=== PATIENT | male | born 1975 | race African-American/Black ===

== ENCOUNTER 2025-06-03 10:36 | Emergency (ER) | payer OTHER, SELFPAY ==
[2025-06-03] VITALS (24 sets, daily range): BP systolic 105–132; BP diastolic 72–100; PULSE 73–96; TEMP 36.6; O2SAT 93–100; BMI 36.6
--- NOTE | 2025-06-03 10:55 | XR_ITS ---
The [address] [address] Patient Name: MARCIA SOSA MRN: [id number] date: 1975 Sex: M Assigned Patient Location: ER Current Patient Location: ED.MAIN Accession/Order Number: [id number] Exam Date: 06/03/2025 11:30 Report Date: 06/03/2025 12:23 At the request of: DEISI ANAYA MD Procedure: XR chest 1V XR chest 1V 06/03/2025 11:34 AM SIGNS AND SYMPTOMS: Left-sided chest pain, shortness breath, cough PROTOCOL: Frontal radiograph of the chest COMPARISON: None FINDINGS: The trachea is midline. The heart and mediastinal structures are within normal limits. Interstitial prominence is noted with mild perihilar airspace opacity possibly representing sequelae of pneumonia. This is greater on the left. The bony thorax is intact. XR/XR chest 1V IMPRESSION: Interstitial prominence is noted with mild perihilar airspace opacity possibly representing sequelae of pneumonia. This is greater on the left. Impression dictated by: Lalito Feliciano M.D. 06/03/2025 12:23 PM Dictation Location: [place] [address] Electronically authenticated by: [id number] Y Date: 06/03/2025 12:23
--- NOTE | 2025-06-03 10:55 | ECG_ITS ---
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 Measurements Intervals [place] Rate: 81 P: 63 CA: 152 QRS: 35 QRSD: 72 T: 47 QT: 352 QTc: 389 Interpretive Statements [address] [facility] abnormality Abnormal ECG No previous ECG available for comparison Electronically Signed On 06-03-2025 11:08:17 EDT by RG BLAKC M.D.
--- NOTE | 2025-06-03 10:57 | ED_ITS ---
HPI HPI - General Adult General Chief complaint: Shortness of Breath/Dyspnea Stated complaint: SHORTNESS OF BREATH, LUMP/BUMP ON HEAD Time Seen by Provider: 06/03/25 10:37 Source: patient Mode of arrival: walk-in Limitations: no limitations History of Present Illness HPI narrative: 49-year-old male presents for chest pain and shortness of breath. Has been having some shortness of breath over the past 2 weeks and now he has some pain in his chest intermittently. It is in the middle part of his chest and does not seem to radiate. He has been coughing up a small amount of white to yellow- colored phlegm. Related Data Allergies Allergy/AdvReac Type Severity Reaction Status Date / Time ibuprofen (From Motrin) AdvReac Mild Nausea Verified 06/03/25 10:45 Review of Systems ROS Narrative A ten point review of systems is negative except as noted above. PFSH PFSH Social History Little interest or pleasure in doing things: not at all Feeling down, depressed, or hopeless: not at all Exam Narrative Exam Narrative: Nurses note and vital signs reviewed General:The patient appears well and in no apparent distress.Patient is resting comfortably on cart. Skin:Warm, dry, no pallor noted.There is no rash noted. Head:Normocephalic, atraumatic Eye: Normal conjunctiva, no drainage Ears, Nose, Mouth, and Throat: oral mucosa is moist. Nares patent. Cardiovascular:Regular Rate and Rhythm Respiratory:Patient is in no distress, no accessory muscle use, lungs are clear to auscultation, no wheezing, rales or rhonchi Back:non-tender GI: Soft and nontender Musculoskeletal: The patient has no evidence of calf tenderness, no pitting edema, symmetrical pulses noted bilaterally Neurological:A&O, normal speech Psychiatric:Cooperative Constitutional Vital Signs, click to edit/add: Last Vital Signs Temp 97.8 F 06/03/25 10:41 Pulse 83 06/03/25 11:10 Resp 20 06/03/25 11:10 BP 129/79 06/03/25 11:01 Pulse Ox 97 06/03/25 12:00 O2 Del Method Room Air 06/03/25 12:00 Course Vital Signs Vital signs: Vital Signs Temperature 97.8 F 06/03/25 10:41 Pulse Rate 77 06/03/25 10:41 Respiratory Rate 18 06/03/25 10:41 Blood Pressure 132/100 H 06/03/25 10:41 Pulse Oximetry 99 06/03/25 10:41 Oxygen Delivery Method Room Air 06/03/25 10:41 Temperature 97.8 F 06/03/25 10:41 Pulse Rate 83 06/03/25 11:10 Respiratory Rate 20 06/03/25 11:10 Blood Pressure 129/79 06/03/25 11:01 Pulse Oximetry 97 06/03/25 12:00 Oxygen Delivery Method Room Air 06/03/25 12:00 Medical Decision Making MDM Narrative Medical decision making narrative: Patient's x-ray is consistent with sequelae of pneumonia. He felt improved with the aerosol treatments and is being discharged home on Zithromax, albuterol, and Tessalon. 2 sets of troponin are negative. I do not suspect pulmonary embolism. Treatment diagnosis and follow-up were discussed with the patient. Differential Diagnosis Differential Diagnosis: PA, pneumonia, bronchitis, influenza, COVID Lab Data Lab results reviewed: Yes I reviewed the patient's lab results Labs: Lab Results 06/03/25 06/03/25 06/03/25 Range/Units 10:55 10:57 11:52 WBC 7.8 (4.0-11.0) 10^3/uL RBC 5.82 (4.70-6.10) 10^6/uL Hgb 16.2 (14.0-18.0) g/dL Hct 49.4 (42.0-54.0) % MCV 84.9 (80.0-94.0) fL MCH 27.8 (25.9-34.0) pg MCHC 32.8 (29.9-35.2) g/dL RDW 13.4 (11.0-15.0) % Plt Count 185 (150-450) 10^3/uL MPV 9.5 (9.5-13.5) fL Neut % (Auto) 50.5 (43.0-75.0) % Lymph % (Auto) 40.0 (20.5-60.0) % Pierce % (Auto) 4.6 (1.7-12.0) % Eos % (Auto) 3.7 (0.9-7.0) % Baso % (Auto) 0.9 (0.2-2.0) % Neut # (Auto) 4.0 (1.4-6.5) 10^3/uL Lymph # (Auto) 3.1 (1.2-3.8) 10^3/uL Pierce # (Auto) 0.4 (0.3-0.8) 10^3/uL Eos # (Auto) 0.3 (0.0-0.7) 10^3/uL Baso # (Auto) 0.1 (0.0-0.1) 10^3/uL Abs Immat Gran (auto) 0.02 (0.00-0.03) 10^3/uL Imm/Tot Granulo (auto) 0.3 (0.0-0.5) % Sodium 140 (136-145) mmol/L Potassium 4.5 (3.5-5.1) mmol/L Chloride 105 (98-107) mmol/L Carbon Dioxide 26.7 (21.0-32.0) mmol/L Anion Gap 12.8 BUN 13.0 (7.0-18.0) mg/dL Creatinine 1.01 (0.70-1.30) mg/dL Est GFR ( Amer) >60 (>=60 mL/min/1.73m^2) Est GFR (Non-Af Amer) >60 (>=60 mL/min/1.73m^2) BUN/Creatinine Ratio 12.9 Glucose 107 H (74-106) mg/dL Calcium 9.5 (8.5-10.1) mg/dL Troponin I High Sens <4.0 L <4.0 L (4.0-76.1) pg/mL NT-Pro-B Natriuret Pep 14.0 (<=900.0) pg/mL Influenza Type A Ag Negative Influenza Type B Ag Negative SARS-CoV-2 Ag (CV2AG) Negative (NEGATIVE) Imaging Data Chest x-ray: Radiologist's impression: ITS Impressions Chest X-Ray 06/03/25 10:55 IMPRESSION: Interstitial prominence is noted with mild perihilar airspace opacity possibly representing sequelae of pneumonia. This is greater on the left. Impression dictated by: Lalito Feliciano M.D. 06/03/2025 12:23 PM Dictation Location: [facility] Electronically authenticated by: [id number] Y Date: 06/03/2025 12:23 ECG Data Attestation: I personally reviewed and interpreted this ECG as follows: (EKG on my interpretation shows sinus rhythm with rate of 81 and no acute change the patient has somewhat flat T waves in 3 and aVF.) Discharge Plan Discharge Chief Complaint: Shortness of Breath/Dyspnea Clinical Impression: Pneumonia Patient Disposition: Home, Self-Care Time of Disposition Decision: 12:56 Condition: Good Mode of Transportation: Private Vehicle Print Language: Monegasque Instructions: Community Acquired Pneumonia (ED) Referrals: Wilfrid Earl MD [Primary Care Provider, Family Practice] - 1 week
[2025-06-03 11:09] LABS: Hematocrit 49.4 % (42.0-54.0); Hemoglobin 16.2 g/dL (14.0-18.0); Immature Granulocytes Abs Auto 0.02 10^3/uL (0.00-0.03); Immature Granulocytes Pct Auto 0.3 % (0.0-0.5); Lymphocytes Absolute Auto 3.1 10^3/uL (1.2-3.8); Mean Corpuscular HGB Conc 32.8 g/dL (29.9-35.2); Mean Corpuscular Hemoglobin 27.8 pg (25.9-34.0); Mean Corpuscular Volume 84.9 fL (80.0-94.0); Platelet Count 185 10^3/uL (150-450); Red Blood Count 5.82 10^6/uL (4.70-6.10); White Blood Count 7.8 10^3/uL (4.0-11.0)
[2025-06-03 11:22] LABS: SARS-CoV-2 Ag NEGATIVE (NEGATIVE)
[2025-06-03 11:36] LABS: Anion Gap 12.8; Blood Urea Nitrogen 13.0 mg/dL (7.0-18.0); Calcium 9.5 mg/dL (8.5-10.1); Carbon Dioxide 26.7 mmol/L (21.0-32.0); Chloride 105 mmol/L (98-107); Estimated GFR (African America >60 (>=60 mL/min/1.73m^2); Estimated GFR (Non-African Ame >60 (>=60 mL/min/1.73m^2); Glucose 107 mg/dL (74-106); NT Pro B Type Natriuretic Pept 14.0 pg/mL (<=900.0); Potassium 4.5 mmol/L (3.5-5.1); Sodium 140 mmol/L (136-145)
[2025-06-03] MEDS: ALBUTEROL SULFATE 2.5 MG/3 ML VIAL NEB IH (11:59)
== END 2025-06-03 13:29 | disposition home or self-care (01) ==
PROVIDERS: Emergency Provider Emergency Medicine; PCP Family Medicine
DX: J18.9 Pneumonia, unspecified organism (principal)
CPT/HCPCS: 36415; 71045; 80048; 83880; 84484; 85025; 87804; 87811; 93005; 94640; 99285